=== PATIENT | female | born 1990 | race Two or more races ===

== ENCOUNTER 2019-11-23 10:35 | Emergency (ER) | payer MEDICAID ==
[~2019-11-23] VITALS: Ht 177.8 cm; Wt 75.0 kg
[2019-11-23] MEDS ORDERED: HYDROCODONE/ACETAMINOPHEN 5/325MG TABLET PO ONE (12:30)
[2019-11-23] MEDS ORDERED: KETOROLAC 30MG/ML VIAL IM ONE (12:30)
[2019-11-23 13:55] VITALS: BP 115/89
== END 2019-11-23 13:58 | disposition home or self-care (01) ==
LOC: ER 10:35
DX: R03.0 Elevated blood-pressure reading, without diagnosis of hypertension (principal); M54.5 Low back pain
CPT/HCPCS: 96372; 99283; J1885